=== PATIENT | female | born 1980 | race Caucasian/White ===

== ENCOUNTER 2018-06-12 00:34 | Emergency (ER) | payer MEDICAID ==
[2018-06-12] MEDS ORDERED: IPRATROPIUM/ALBUTEROL 3 ML NEB INH STA (00:55)
[2018-06-12] MEDS ORDERED: BENZONATATE 100 MG CAPSULE PO STA (00:55)
[2018-06-12] MEDS ORDERED: predniSONE 20 MG TABLET PO STA (00:55)
[2018-06-12] MEDS ORDERED: ALBUTEROL NEB 2.5 MG/3 ML INH STA (01:18)
--- NOTE | 2018-06-12 01:22 | ED Physician Documentation ---
PD HPI URI - Stated complaint Stated Complaint: COUGH,SOA - Chief complaint Chief Complaint: Resp - History obtained from History obtained from: Patient - History of Present Illness Timing - onset: How many days ago (10) Timing duration: Days (10) Timing details: Gradual onset Pain level max: 0 Pain level now: 0 Associated symptoms: Fever, Chills, Nasal congestion, Rhinorrhea, Dry cough, Dyspnea (wheezing). No: Chest pain Contributing factors: COPD / asthma Improves by: Rest Worsened by: Activity, Breathing Recently seen: Not recently seen Review of Systems Constitutional: reports: Fever, Chills Nose: reports: Rhinorrhea / runny nose Cardiac: denies: Chest pain / pressure Respiratory: reports: Cough, Wheezing GI: denies: Nausea, Vomiting : denies: Now EGA Skin: denies: Rash Musculoskeletal: denies: Neck pain, Back pain Neurologic: denies: Headache PD PAST MEDICAL HISTORY - Past Medical History Past Medical History: No - Past Surgical History Past Surgical History: No - Present Medications Home Medications: Ambulatory Orders Medication Instructions Recorded Confirmed Albuterol Sulf [Ventolin Hfa 1 - 2 puffs INH Q4HR PRN #1 inhaler 06/12/18 Inhaler] Benzonatate [Tessalon Perle] 100 - 200 mg PO TID PRN #30 capsule 06/12/18 predniSONE [Prednisone] 40 mg PO DAILY #10 tablet 06/12/18 - Allergies Allergies/Adverse Reactions: Allergies Allergy/AdvReac Type Severity Reaction Status Date / Time Penicillins Allergy Respiratory Verified 06/12/18 00:41 Sulfa (Sulfonamide Allergy Respiratory Verified 06/12/18 00:41 Antibiotics) - Social History Does the pt smoke?: No Smoking Status: Never smoker Does the pt drink ETOH?: No Does the pt have substance abuse?: No - Immunizations Immunizations are current?: No - POLST Patient has POLST: No PD ED PE NORMAL - Vitals Vital signs reviewed: Yes - General General: Alert and oriented X 3, No acute distress, Well developed/nourished - HEENT HEENT: Ears normal, Moist mucous membranes, Pharynx benign - Neck Neck: Supple, no meningeal sign - Cardiac Cardiac: RRR, Strong equal pulses - Respiratory Respiratory: No respiratory distress, Other (Diminished breath sounds bilaterally) - Abdomen Abdomen: Soft, Non tender, Non distended - Derm Derm: Warm and dry - Neuro Neuro: Alert and oriented X 3 - Psych Psych: Normal mood, Normal affect Results - Vitals Vitals: Vital Signs - 24 hr 06/12/18 06/12/18 06/12/18 00:37 01:06 02:15 Temperature 36.3 C L 36.7 C Heart Rate 113 H 103 H Respiratory 24 32 H 20 Rate Blood Pressure 148/98 H 136/79 H O2 Saturation 100 99 Oxygen O2 Source Room air - Rads (name of study) Chest x-ray Radiology: Prelim report reviewed, EMP read contemporaneously, See rad report (No acute disease) PD MEDICAL DECISION MAKING - ED course Complexity details: reviewed results, re-evaluated patient, considered differential, d/w patient ED course: 38-year-old female with what appears to be a viral upper respiratory infection. No evidence of pneumonia on chest x-ray. Feels better after nebulizer treatment. Will place on steroids for home as well. Patient is well-appearing, nontoxic. Afebrile. Patient counseled regarding signs and symptoms for which I believe and urgent re-evaluation would be necessary. Patient with good understanding of and agreement to plan and is comfortable going home at this time This document was made in part using voice recognition software. While efforts are made to proofread this document, sound alike and grammatical errors may occur. Departure - Departure Disposition: 01 Home, Self Care Clinical Impression: Upper respiratory tract infection Qualifiers: URI type: unspecified viral URI Qualified Code(s): J06.9 - Acute upper respiratory infection, unspecified Condition: Good Instructions: ED URI Viral Follow-Up: your,doctor in 1 week [Other] Prescriptions: Albuterol Sulf [Ventolin Hfa Inhaler] 1 - 2 puffs INH Q4HR PRN #1 inhaler PRN Reason: Shortness Of Air/Wheezing Benzonatate [Tessalon Perle] 100 - 200 mg PO TID PRN #30 capsule PRN Reason: Cough predniSONE [Prednisone] 40 mg PO DAILY #10 tablet Comments: Use the medications as prescribed. Return if you worsen. This should improve over the next week or so. Discharge Date/Time: 06/12/18 02:17
--- NOTE | 2018-06-12 01:37 | XRAY Report ---
Reason: cough Procedure Date: 06/12/2018 Accession Number: [id number] / [id number] Procedure: XR - Chest 2 View X-Ray CPT Code: 89428 FULL RESULT: EXAM: CHEST RADIOGRAPHY EXAM DATE: 06/12/2018 01:32 AM. CLINICAL HISTORY: Cough. COMPARISON: None. TECHNIQUE: 2 views. FINDINGS: Lungs/Pleura: No focal opacities evident. No pleural effusion. No pneumothorax. Normal volumes. Mediastinum: Heart and mediastinal contours are unremarkable. Other: None. IMPRESSION: Normal 2-view chest radiography. RADIA
[2018-06-12 02:15] VITALS: BP 136/79
== END 2018-06-12 02:17 | disposition home or self-care (01) ==
LOC: ED 00:34
DX: J06.9 Acute upper respiratory infection, unspecified (principal)
CPT/HCPCS: 71046; 94640; 94664; 99283; A9270; J7512

== ENCOUNTER 2020-04-12 19:20 | Emergency (ER) | payer OTHER ==
[2020-04-12 19:32] VITALS: BP 136/78
== END 2020-04-12 19:32 | disposition left against medical advice (07) ==
LOC: ED 19:20
DX: Z53.21 Procedure and treatment not carried out due to patient leaving prior to being seen by health care provider (principal)

== ENCOUNTER 2020-04-18 10:36 | Day surgery (SDC) | payer OTHER ==
[2020-04-18] MEDS ORDERED: CEFAZOLIN SODIUM IN 0.9 % NACL 2 GM/100 ML BAG IV ONE (11:28)
--- NOTE | 2020-04-18 11:37 | ANESTHESIA ---
Pre-Anesthesia VS, & Labs - Diagnosis Hyperparathyroidism - Procedure Parathyroidectomy Vital Signs: Temp Pulse Resp BP Pulse Ox 36.8 C 89 16 153/83 H 98 04/18/20 10:35 04/18/20 10:35 04/18/20 10:35 04/18/20 10:35 04/18/20 10:35 Height: 5 ft 8 in Weight (kg): 129.9 kg Body Mass Index: 43.5 BMI Classification: Morbidly Obese - NPO >8 hours - Is Patient ?: No - Lab Results Current Lab Results: Laboratory Tests 04/18/20 11:28: POC Whole Bld Glucose 77 Home Medications and Allergies Home Medications: Ambulatory Orders Ibuprofen [Motrin] 600 mg PO Q6H PRN 04/09/20 Ibuprofen [Motrin] 600 mg PO Q6H PRN 04/09/20 Allergies/Adverse Reactions: Allergies Allergy/AdvReac Type Severity Reaction Status Date / Time adhesive Allergy Rash Verified 04/09/20 11:54 Penicillins Allergy Anaphylaxis Verified 04/09/20 11:54 Sulfa (Sulfonamide Allergy Anaphylaxis Verified 04/09/20 11:54 Antibiotics) Anes History & Medical History - Anesthetic History Anesthesia Complications: reports: No previous complications Family history of Anesthesia Complications: Denies Family history of Malignant Hyperthermia: Denies - Medical History Cardiovascular: reports: Hypertension Pulmonary: reports: Asthma (Last inhaler use several month ago. Will have reaction from an environmental particle.), Sleep apnea Gastrointestinal: reports: GERD (Occasional) Urinary: reports: None Neuro: reports: None Musculoskeletal: reports: None Endocrine/Autoimmune: reports: Other (Insulin resistant. Glucola and BS normal but high insulin levels. 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 Blinking lights and beeps from hospital equipment. Pt has been on Ativan in preparation for admission. Took ativan today. Affect is flat, easily tears up. Possible underlying other psychological issues.) History of Cancer?: No - Surgical History Gynecologic: section Exam General: Alert, Oriented x3, Cooperative, Moderate distress Dental: WNL Mouth Openin Fingerbreadth Neck Mobility: Normal Mallampati classification: II Thyromental Distance: 4-6 cm Respiratory: Lungs clear Cardiovascular: Regular rate Plan Anesthesia Type: General Consent for Procedure(s) Verified and Reviewed: Yes Code Status: Attempt Resuscitation ASA classification: 3-Severe systemic disease Is this case an emergency?: No (Discussed anesthesia, consent signed.)
[2020-04-18] MEDS ORDERED: MIDAZOLAM 2 MG/2 ML VIAL IVP ONE (11:42)
[2020-04-18] MEDS ORDERED: ONDANSETRON 4 MG/2 ML VIAL IVP ONE (11:42)
[2020-04-18] MEDS ORDERED: fentaNYL 100 MCG/2 ML VIAL IVP ONE (11:42)
[2020-04-18] MEDS ORDERED: DEXAMETHASONE 4 MG/ML VIAL IVP ONE (11:42)
[2020-04-18] MEDS ORDERED: KETOROLAC 30 MG/ML VIAL IVP ONE (11:42)
[2020-04-18] MEDS ORDERED: PROPOFOL 200 MG/20 ML VIAL IVP ONE (11:42)
[2020-04-18] MEDS ORDERED: LIDOCAINE-MPF 2% 5 ML VIAL IM ONE (11:42)
[2020-04-18] MEDS ORDERED: METOPROLOL 5 MG/5 ML VIAL IVP ONE (11:42)
[2020-04-18] MEDS ORDERED: SUCCINYLCHOLINE 200 MG/10 ML VIAL IVP ONE (11:42)
[2020-04-18] MEDS ORDERED: HYDROmorphone 0.5 MG/0.5 ML SYRINGE IVP PRN (11:43)
[2020-04-18] MEDS ORDERED: fentaNYL 100 MCG/2 ML VIAL IVP PRN (11:43)
[2020-04-18] MEDS ORDERED: NALOXONE 0.4 MG/ML VIAL IVP PRN (11:43)
[2020-04-18] MEDS ORDERED: ATROPINE ABBOJECT 1 MG/10 ML SYRINGE IVP PRN (11:43)
[2020-04-18] MEDS ORDERED: ONDANSETRON 4 MG/2 ML VIAL IVP PRN ×2 (11:43→13:53)
[2020-04-18] MEDS ORDERED: ePHEDrine 50 MG/ML VIAL IVP PRN (11:43)
[2020-04-18] MEDS ORDERED: MORPHINE 2 MG/ML CARPUJECT IVP PRN (11:43)
[2020-04-18] MEDS ORDERED: METOCLOPRAMIDE 10 MG/2 ML VIAL IVP PRN (11:43)
[2020-04-18] MEDS ORDERED: LACTATED RINGERS 1,000 ML IV SCH (12:00)
[2020-04-18] MEDS ORDERED: CEFOTETAN DISODIUM 2 GM in SODIUM CHLORIDE 0.9% MINIBAG 100 ML IV ONE (12:00)
[2020-04-18] MEDS ORDERED: BUPIVACAINE 0.5% PF 30 ML VIAL INFIL ONE (13:03)
[2020-04-18] MEDS ORDERED: BUPIVACAINE 0.5% PF 30 ML VIAL ONE (13:08)
[2020-04-18] MEDS ORDERED: LACTATED RINGERS 1,000 ML IV ONE ×2 (13:29→14:37)
--- NOTE | 2020-04-18 13:49 | OPERATIVE REPORT ---
Operative Report - General Procedure Date: 04/18/20 Planned Procedure: LEFT inferior parathyroidectomy Pre-Op Diagnosis: Hypercalcemia secondary to primary hyperparathyroidism Procedure Performed: LEFT inferior parathyroidectomy Post Op Diagnosis: LEFT inferior parathyroid adenoma - Procedure Note Primary Surgeon: Brendan Marlow MD Anesthesia Provider: Danyelle Moss CRNA Anesthesia Technique: General ET tube, Local (10 mL 1/2% marcaine) Pathology: Dr. Brendan Sweeney confirmed a weight of 742 mg and that this was abnormal parathyroid tissue. IV Fluids (mL): 700 Estimated Blood Loss (mL): 10 Drain/Tube Type: Other (None.) Indications: Hypercalcemia secondary to primary hyperparathyroidism Complications: None. - Other Other Information/Narrative: Dictation service has been discontinued for entry - this is an Operative Note - please refer to Operative Report for details.
[2020-04-18] MEDS ORDERED: HYDROcod/ACETAM 5/325 MG TABLET PO PRN (13:53)
[2020-04-18] MEDS: MIDAZOLAM 2 MG/2 ML VIAL IVP PRN ×2 (14:00→14:10)
[2020-04-18] MEDS ORDERED: MIDAZOLAM 2 MG/2 ML VIAL ONE (14:09)
--- NOTE | 2020-04-18 15:11 | ANESTHESIA POST OP EVALUATION ---
Anesthesia Post Eval - Post Anesthesia Eval Vitals: Last Vital Signs Temp 37.3 C 04/18/20 14:53 Pulse 87 04/18/20 14:53 Resp 18 04/18/20 14:53 BP 125/58 L 04/18/20 14:53 Pulse Ox 100 04/18/20 14:53 CV Function Including HR & BP: positive: Stable Pain Control: positive: Satisfactory Nausea & Vomiting: positive: Negative Mental Status: positive: Baseline Respiratory Status: Airway Patent Hydration Status: Satisfactory Anesthesia Complications: positive: None (Tramsferred to oakes)
[2020-04-18 18:04] VITALS: BP 111/61
== END 2020-04-18 18:45 | disposition home or self-care (01) ==
LOC: SDS 10:36 → MS2 14:28 → SDS 18:45
PROVIDERS: ATTEND Surgery
PROC: 0GBP0ZZ Excision of Left Inferior Parathyroid Gland, Open Approach (ICD-10-PCS; principal; 2020-04-18 11:30)
DX: D35.1 Benign neoplasm of parathyroid gland (principal); E21.0 Primary hyperparathyroidism; I10 Essential (primary) hypertension; J45.909 Unspecified asthma, uncomplicated; G47.30 Sleep apnea, unspecified; F41.9 Anxiety disorder, unspecified; E88.81 Metabolic syndrome and other insulin resistance
CPT/HCPCS: 60500; J0330; J0690; J7120; 81025

== ENCOUNTER 2020-04-19 10:26 | Outpatient (CLI) | payer OTHER ==
[2020-04-19 11:06] LABS: CALCIUM 9.3 mg/dL (8.5-10.3); PHOSPHORUS 4.2 mg/dL (2.5-4.6)
== END 2020-04-19 10:27 | disposition home or self-care (01) ==
LOC: LAB 10:26
PROVIDERS: ATTEND Surgery
DX: D35.1 Benign neoplasm of parathyroid gland (principal); E21.0 Primary hyperparathyroidism
CPT/HCPCS: 36415; 82310; 83970; 84100

== ENCOUNTER 2022-06-17 18:04 | Outpatient (CLI) | payer OTHER ==
--- NOTE | 2022-06-18 16:18 | XRAY Report ---
PROCEDURE: Chest 2 View X-Ray INDICATIONS: BAD COUGH TECHNIQUE: 2 views of the chest were acquired. COMPARISON: 06/12/2018 FINDINGS: Surgical changes and devices: None. Lungs and pleura: No pleural effusions or pneumothorax. Lungs are clear. Mediastinum: Mediastinal contours are normal. Heart size is normal. Bones and chest wall: No suspicious bony abnormalities. Soft tissues appear unremarkable. IMPRESSION: No acute process. Reviewed by: Lelia Zimmerman MD on 06/18/2022 4:16 PM PST Approved by: Lelia Zimmerman MD on 06/18/2022 4:16 PM PST Station ID: [id number]
== END 2022-06-17 18:05 | disposition home or self-care (01) ==
LOC: DI 18:04
PROVIDERS: ATTEND Nurse Practitioner
DX: R05.9 Cough, unspecified (principal)